=== PATIENT | male | born 1970 | race Caucasian/White ===

== ENCOUNTER 2018-07-11 17:25 | Emergency (ER) | payer OTHER ==
[~2018-07-11] VITALS: Ht 170.2 cm; Wt 86.2 kg
[2018-07-11 17:52] VITALS: BP 130/87
[2018-07-11 19:22] LABS: INFLUENZA A PATIENT POSITIVE (NEGATIVE); INFLUENZA B PATIENT NEGATIVE (NEGATIVE)
--- NOTE | 2018-07-11 19:38 | RAD ---
Exam:Bilateral ribs with PA chest Date: 07/11/2018 6:53 PM Comparison: No prior Indication: COUGH AND FEVER STARTED YESTERDAY, RIB PAIN FROM COUGHING Findings/ Impression: The heart is not enlarged. Mediastinal and hilar contours are normal. No focal parenchymal airspace opacity. No pleural effusion or pneumothorax. AP, Oblique and Spot images of the ribs are negative for acute displaced rib fracture. Negative focal pleural elevation. Symmetrical intercostal spacing. It is of note that an acute non-displaced rib fracture can be in-apparent on initial post-trauma imaging. Electronically signed by: Sang Garza MD (07/11/2018 7:34 PM) [facility]
[2018-07-11] MEDS ORDERED: IBUP-1060 PO (19:56)
[2018-07-11] MEDS ORDERED: HYDR15SO6 PO (20:14)
[2018-07-11] MEDS ORDERED: BENZ100C PO (20:15)
[2018-07-11] MEDS ORDERED: HYDROcodone/APAP 5/325MG 1 TAB TABLET ONE (20:15)
[2018-07-11] MEDS ORDERED: HYDROcodone/APAP 5/325MG 1 TAB TABLET PO ONE (21:00)
--- NOTE | 2018-07-12 03:27 | PHYS DOC ---
Past Medical History Past Medical History: GERD Past Surgical History: No Surgical History Alcohol Use: Occasionally Drug Use: None Adult General Chief Complaint Chief Complaint: COUGH HPI HPI Patient is a 48 year old male who presents with flu-like symptoms. Patient has been ill over the last 24-48 hours. He states his symptoms started suddenly. He has what he describes to be severe diffuse body aches. He has also had a persistent severe cough that has kept him up all night over the last 2 nights. The cough has been dry and hacking in nature and nonproductive. He has had chills at home. He has used some [id number] pain medications without relief. No nausea or vomiting. Denies prior history of similar symptoms or other chronic health conditions. Review of Systems Review of Systems Constitutional: + chills Eyes: Denies change in visual acuity HENT: Denies nasal congestion or sore throat Respiratory: + cough Cardiovascular: No additional information not addressed in HPI GI: Denies abdominal pain, nausea or vomiting Musculoskeletal: Denies back pain or joint pain Integument: Denies rash or skin lesions Neurologic: Denies headache All other systems were reviewed and found to be within normal limits, except as documented in this note. Current Medications Current Medications Current Medications Medications (Trade) Dose Ordered Sig/Jet Start Time Stop Time Status Last Admin Dose Admin Acetaminophen/ Hydrocodone Bitart (Lortab 5/325) 1 tab STK-MED ONCE 07/11/18 20:15 07/11/18 20:17 DC Allergies Allergies Allergies Coded Allergies Type Severity Reaction Last Updated Verified No Known Drug Allergies 07/05/16 No Physical Exam Physical Exam Constitutional: Well developed, well nourished, no acute distress HENT: Normocephalic, atraumatic, bilateral external ears normal, oropharynx moist, TM's dull but not erythematous Eyes: PERRLA, EOMI, conjunctiva normal, no discharge Neck: Normal range of motion, no tenderness, supple, no stridor. Cardiovascular:Heart rate regular rhythm, no murmur Lungs & Thorax: Bilateral breath sounds clear to auscultation Skin: Warm, dry, no erythema, no rash Neurologic: Alert and oriented X 3 Psychologic: Affect normal Current Patient Data Vital Signs Vital Signs Date Time Temp Pulse Resp B/P (MAP) Pulse Ox O2 Delivery O2 Flow Rate FiO2 07/11/18 17:52 98.3 88 18 130/87 (101) 97 Room Air 98.3 Lab Values Laboratory Tests Test 07/11/18 18:00 Influenza Type A Antigen Positive (NEGATIVE) Influenza Type B Antigen Negative (NEGATIVE) EKG EKG [] Radiology/Procedures Radiology/Procedures Rib xrays: no acute findings Course & Med Decision Making Course & Med Decision Making Pertinent Labs and Imaging studies reviewed. (See chart for details) Patient was evaluated in the emergency department for flulike symptoms. He was screened for influenza and did test positive. He had normal vital signs during the ED course. His primary complaint was cough and body aches. He had tried some [id number] medications but to no avail to relieve his cough. He was requesting some pain medication and medicine for cough. In the ER, the patient was given 2 [place] for pain. He was discharged home with a prescription for Tessalon Perles. He was also given some hydrocodone elixir to use as needed for cough or discomfort at home. He was advised to push fluids and rest at home. Return to the ER for any new or worsening symptoms. Otherwise, follow up with primary care doctor.\ Patient did complain of lateral rib cage pain due to all of the coughing he had been having. X-rays were completed but no acute fractures were seen. Dragon Disclaimer Dragon Disclaimer This electronic medical record was generated, in whole or in part, using a voice recognition dictation system. Departure Departure Impression: Primary Impression: Influenza Disposition: HOME, SELF-CARE Condition: GOOD Patient Instructions: Influenza, Adult Scripts Benzonatate (TESSALON PERLE) 100 Mg Capsule 1 CAP PO TID PRN for COUGH, #21 CAP Prov: JAGUAR CAIN DO 07/11/18 Hydrocodone Bit/Acetaminophen (HYDROCODONE-APAP 7.5-325/15 SOLN ) 15 Ml Solution 15 ML PO PRN Q6HRS for cough or pain, #120 ML 0 Refills Prov: JAGUAR CAIN DO 07/11/18 Ibuprofen (IBUPROFEN) 800 Mg Tablet 800 MG PO PRN TID PRN for PAIN, #21 TAB take with food or milk to avoid upsetting stomach Prov: JAGUAR CAIN DO 07/11/18 JAGUAR CAIN DO Jul 12, 2018 03:27
== END 2018-07-11 20:36 | disposition home or self-care (01) ==
LOC: ER 17:25
DX: J09.X2 Influenza due to identified novel influenza A virus with other respiratory manifestations (principal); K21.9 Gastro-esophageal reflux disease without esophagitis
CPT/HCPCS: 71111; 87804; 99284-25